=== PATIENT | female | born 1950 | race Caucasian/White ===

== ENCOUNTER → 2018-12-06 09:25 | Outpatient (CLI) | payer MEDICARE, OTHER, SELFPAY ==
--- NOTE | 2018-12-06 09:36 | CT_ITS ---
CT chest w con HISTORY: Follow-up pulmonary nodule/lung mass, emphysema ITS.REASON: PULMONARY NODULES ORDERING PHYSICIAN: Akil Rockwell MD PATIENT AGE: 68 years COMPARISON: 09/10/2017 TECHNIQUE: Axial images obtained following the administration of 75 mL of Isovue 370 . Sagittal, and coronal reformatted images are also generated and reviewed. All CT scans at the facility use one or more dose reduction, viz: automated exposure control, ma/kV adjustment per patient size (including targeted exams where dose is matched to indication, i.e. head), or iterative reconstruction technique. FINDINGS: No mediastinal or hilar mass or adenopathy is evident. Diffuse centrilobular pulmonary emphysema with hyperinflation and attenuation of the peripheral pulmonary vessels consistent with COPD 14 x 9 mm nodule once again noted in the right upper lobe posteriorly. This is not significantly changed. There is a new spiled x 6 mm nodule noncalcified within the left upper lobe axial image #24. No other nodules are evident. No effusions or infiltrates. Upper abdominal images are unremarkable. No acute bony anomalies. Atheromatous changes involve the aorta. Coronary artery calcification is again noted IMPRESSION: 1. Stable 14 mm nodule in the right upper lobe 2. New 5 x 6 mm noncalcified nodule left upper lobe. Recommend 6 month follow-up to confirm short-term stability. 3. Centrilobular emphysema with COPD
== END ==
PROVIDERS: PCP Family Medicine; Visit Provider Family Medicine
DX: R91.1 Solitary pulmonary nodule (principal)
CPT/HCPCS: 71260; Q9967